=== PATIENT | female | born 1995 | race Two or more races ===

== ENCOUNTER 2022-02-08 15:30 | Emergency (ER) | payer OTHER ==
[~2022-02-08] VITALS: Ht 162.6 cm; Wt 74.8 kg
== END 2022-02-08 20:15 | disposition home or self-care (01) ==
LOC: ER 15:30
DX: R10.30 Lower abdominal pain, unspecified (principal); Z88.8 Allergy status to other drugs, medicaments and biological substances; Z91.013 Allergy to seafood

== ENCOUNTER 2022-03-28 13:06 | Emergency (ER) | payer OTHER ==
[~2022-03-28] VITALS: Ht 162.6 cm; Wt 74.4 kg
[2022-03-28] MEDS ORDERED: XOPENEX0.63 MG/3 IH (13:28)
[2022-03-28] MEDS ORDERED: PSEUDOEPHEDRINE30 MG PO (13:29)
[2022-03-28] MEDS ORDERED: MEDROL4 MG PO (13:29)
[2022-03-28] MEDS ORDERED: AZITHROMYCIN250 MG PO (13:30)
[2022-03-28] MEDS ORDERED: IPRATROPIU0.2 MG/1 M IH (18:29)
== END 2022-03-28 19:04 | disposition home or self-care (01) ==
LOC: ER 13:06
DX: J45.901 Unspecified asthma with (acute) exacerbation (principal); Z88.6 Allergy status to analgesic agent; Z91.013 Allergy to seafood; Z20.822 Contact with and (suspected) exposure to COVID-19

== ENCOUNTER 2024-12-09 09:45 | Outpatient (CLI) | payer OTHER ==
[~2024-12-09 09:45] MED LIST: AZITHROMYCIN250 MG PO; IPRATROPIU0.2 MG/1 M IH; MEDROL4 MG PO; PSEUDOEPHEDRINE30 MG PO; XOPENEX0.63 MG/3 IH
== END 2024-12-09 09:47 | disposition home or self-care (01) ==
LOC: NUCLEAR 09:45
PROVIDERS: ATTEND Orthopaedic Surgery
DX: M25.562 Pain in left knee (principal)

== ENCOUNTER 2024-12-10 09:51 | Outpatient (CLI) | payer OTHER | END 2024-12-10 09:52 | disposition home or self-care (01) | LOC: NUCLEAR 09:51 | PROVIDERS: ATTEND Orthopaedic Surgery | DX: M25.562 Pain in left knee (principal) ==